=== PATIENT | male | born 1970 ===

== ENCOUNTER 2017-07-12 10:31 | Emergency (ER) | payer OTHER ==
[2017-07-12 11:01] VITALS: RESP 18; O2SAT 98
[2017-07-12] MEDS ORDERED: cefTRIAXone (Rocephin) 250 mg Inj IM STA (12:04)
[2017-07-12 12:07] LABS: RBC URINE 3 /hpf (0-3); URINE BILIRUBIN NEGATIVE (NEGATIVE); URINE BLOOD 1+ (NEGATIVE); URINE COLOR Yellow (YELLOW); URINE GLUCOSE (UA) NORMAL (Normal); URINE KETONE NEGATIVE (NEGATIVE); URINE LEUKOCYTE ESTERASE 3+ Leu/uL (Negative); URINE PROTEIN NEGATIVE (NEGATIVE); URINE UROBILINOGEN NORMAL mg/dL (0.2-1.0); WBC URINE 296 /hpf (0-5)
--- NOTE | 2017-07-12 12:17 | C.PDOC ---
History Of Present Illness 47 y/o male presents to ED with complaints of dysuria and some hematuria for 20 days. Patient reports symptoms developed after unprotected sexual activity. Patient states he was seen at a clinic in [place] on 06/27/17 and given Pyridium with no relief. Patient comes to ed for evaluation and denies any testicular pain, discharge, suprapubic pain, back pain or any other complaints at this time. 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 Limitations: no limitations Onset/Duration Of Symptoms: Days Current Symptoms Are (Timing): Still Present Associated Symptoms: Urinary Symptoms Past Medical History Reviewed: Historical Data, Nursing Documentation, Vital Signs Vital Signs: Last Vital Signs Temp 98.2 F 07/12/17 13:22 Pulse 72 07/12/17 13:22 Resp 18 07/12/17 13:22 BP 129/75 07/12/17 13:22 Pulse Ox 98 07/12/17 13:23 - Medical History PMH: Seizures Surgical History: No Surg Hx Family History: States: No Known Family Hx - Social History Hx Alcohol Use: No Hx Substance Use: No - Immunization History Hx Tetanus Toxoid Vaccination: No Hx Influenza Vaccination: No Hx Pneumococcal Vaccination: No Review Of Systems Except As Marked, All Systems Reviewed And Found Negative. Constitutional: Negative for: Fever, Chills Gastrointestinal: Negative for: Nausea, Vomiting, Abdominal Pain Genitourinary: Positive for: Dysuria, Hematuria. Negative for: Incontinence, Penile Discharge, Rash, Penile Pain Musculoskeletal: Negative for: Back Pain Skin: Negative for: Rash Physical Exam - Physical Exam Appears: Non-toxic, No Acute Distress Skin: Warm, Dry, No Rash Head: Atraumatic, Normacephalic Eye(s): bilateral: Normal Inspection, EOMI Nose: Normal Oral Mucosa: Moist Neck: Normal ROM, Supple Chest: Symmetrical Cardiovascular: Rhythm Regular, No Murmur Respiratory: Normal Breath Sounds, No Accessory Muscle Use, No Rales, No Rhonchi , No Wheezing Gastrointestinal/Abdominal: Soft, No Tenderness, No Guarding, No Rebound Back: No CVA Tenderness, No Paraspinal Tenderness Neurological/Psych: Oriented x3, Normal Speech ED Course And Treatment O2 Sat by Pulse Oximetry: 98 (RA) Pulse Ox Interpretation: Normal Progress Note: Urine culture, Azithromycin. Discussed with pt signs of concern and instructed follow up with clinic in 1-2 days. Return to ER if symptoms persist or worsen. Disposition - Disposition Referrals: [facility] [Outside] [facility] [Outside] Disposition: HOME/ ROUTINE Disposition Time: 12:15 Condition: STABLE Additional Instructions: Vaya a larson mdico o la clnica en 1-3 rubio sin falta, para mas evaluacin. Bootjack los medicamentos zac indicado. Volver a la lamonte de emergencia en cualquier momento si los sntomas persisten o empeoran. 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 - Scribe Statement The provider has reviewed the documentation as recorded by the Zack Baxter All medical record entries made by the Zack were at my direction and personally dictated by me. I have reviewed the chart and agree that the record accurately reflects my personal performance of the history, physical exam, medical decision making, and the department course for this patient. I have also personally directed, reviewed, and agree with the discharge instructions and disposition.
[2017-07-12 13:23] VITALS: BP 129/75; PULSE 72; TEMP 98.2
== END 2017-07-12 13:23 | disposition home or self-care (01) ==
LOC: C.ER 10:31
DX: N39.0 Urinary tract infection, site not specified (principal); A64 Unspecified sexually transmitted disease
CPT/HCPCS: 81001; 87086; 87181; 87491; 87591; 96372; 99284; J0696

== ENCOUNTER 2018-07-19 12:35 | Emergency (ER) | payer OTHER ==
[2018-07-19 12:54] VITALS: BMI 23.8
[2018-07-19 12:57] VITALS: BP 133/88; PULSE 75; RESP 16; TEMP 98.8; O2SAT 98
--- NOTE | 2018-07-19 13:47 | C.PDOC ---
History Of Present Illness 48 y/o male with history of DM presents to ED with c/o with c/o itchy rash to arms and abdomen for 1 month. Patient states he went to pharmacy and has been taking Cortisone with no improvement. Patient denies known allergens, new soaps, fever, chills, sob, new medication or any other complaints at this time. <Margarita Glover - Last Filed: 07/19/18 13:58> History Per: Patient History/Exam Limitations: no limitations Onset/Duration Of Symptoms: Days Current Symptoms Are (Timing): Still Present <Margarita Glover - Last Filed: 07/19/18 13:58> <Jenny Sutton - Last Filed: 07/19/18 14:36> Time Seen by Provider: 07/19/18 13:08 Chief Complaint (Nursing): Abnormal Skin Integrity Past Medical History Reviewed: Historical Data, Nursing Documentation, Vital Signs Vital Signs: Last Vital Signs Temp 98.8 F 07/19/18 12:54 Pulse 75 07/19/18 12:54 Resp 16 07/19/18 12:54 BP 133/88 07/19/18 12:54 Pulse Ox 98 07/19/18 12:54 - Medical History PMH: Diabetes, Seizures Surgical History: No Surg Hx Family History: States: No Known Family Hx - Social History Hx Alcohol Use: No Hx Substance Use: No - Immunization History Hx Tetanus Toxoid Vaccination: No Hx Influenza Vaccination: No Hx Pneumococcal Vaccination: No <Margarita Glover - Last Filed: 07/19/18 13:58> Vital Signs: Last Vital Signs Temp 98.8 F 07/19/18 12:54 Pulse 75 07/19/18 12:54 Resp 16 07/19/18 12:54 BP 133/88 07/19/18 12:54 Pulse Ox 98 07/19/18 14:05 <Jenny Sutton - Last Filed: 07/19/18 14:36> Review Of Systems Constitutional: Negative for: Fever, Chills Respiratory: Negative for: Cough, Shortness of Breath Gastrointestinal: Negative for: Nausea, Vomiting Skin: Positive for: Rash <Margarita Glover - Last Filed: 07/19/18 13:58> Physical Exam - Physical Exam Appears: Non-toxic, No Acute Distress Skin: Warm, Dry, Rash (.5cm scattered papules to abdomen and arms with surrounding scaly patches) Head: Atraumatic, Normacephalic Eye(s): bilateral: PERRL, EOMI Oral Mucosa: Moist Throat: Normal, No Erythema, No Exudate Neck: Supple Cardiovascular: Rhythm Regular Respiratory: Normal Breath Sounds, No Rales, No Rhonchi, No Wheezing Neurological/Psych: Oriented x3, Normal Speech, Normal Cognition <Margarita Glover - Last Filed: 07/19/18 13:58> ED Course And Treatment O2 Sat by Pulse Oximetry: 98 (RA) Pulse Ox Interpretation: Normal <Margarita Glover - Last Filed: 07/19/18 13:58> Medical Decision Making Medical Decision Making: pt with diffuse itchy rash x one month. starts like a small papule, later turns to scaly patch. possible fungal infections. willd/c with hydrocortisone and lotrimin cream with derm f/u <Margarita Glover - Last Filed: 07/19/18 13:58> Disposition Counseled Patient/Family Regarding: Diagnosis, Need For Followup, Rx Given - Disposition Disposition Time: 13:52 <Margarita Glover - Last Filed: 07/19/18 13:58> Counseled Patient/Family Regarding: Diagnosis, Need For Followup <Jenny Sutton - Last Filed: 07/19/18 14:36> - Disposition Referrals: Zachary Silverio MD [Medical Doctor] - Disposition: HOME/ ROUTINE Condition: GOOD Prescriptions: RX: Hydrocortisone 1% Cream [Cortizone 1% Cream] 1 applic TP BID #1 tube Miconazole 2% [Miconazole 2% Cream] 1 applic TOP BID #1 tube Instructions: Skin Rash (DC) Forms: Gen Discharge Inst [facility], [facility] ([facility]) Print Language: DANISH - Clinical Impression Clinical Impression: Rash and nonspecific skin eruption - 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 - Scribe Statement The provider has reviewed the documentation as recorded by the Nohemiibdianne Baxter All medical record entries made by the Nohemiibdianne were at my direction and personally dictated by me. I have reviewed the chart and agree that the record accurately reflects my personal performance of the history, physical exam, [facility] decision making, and the department course for this patient. I have also personally directed, reviewed, and agree with the discharge instructions and disposition. <Margarita Glover - Last Filed: 07/19/18 13:58>
== END 2018-07-19 14:07 | disposition home or self-care (01) ==
LOC: C.ER 12:35
DX: R21 Rash and other nonspecific skin eruption (principal)